=== PATIENT | male | born 1955 | race American Indian/Alaskan Native ===

== ENCOUNTER 2017-10-26 15:14 | Inpatient (IN) | payer OTHER ==
[~2017-10-26] VITALS: Ht 182.9 cm; Wt 127.3 kg
[2017-10-26] MEDS ORDERED: normal saline 1000ML IV soln IVB ONE ×2 (15:35→16:50)
[2017-10-26] MEDS ORDERED: aspirin 81mg tab.chew PO ONE (15:35)
[2017-10-26 15:54] LABS: BASOPHILS % (AUTO) 0.4 % (0-1); EOSINOPHILS # (AUTO) 0.1 X10'3 (0-0.9); EOSINOPHILS % (AUTO) 1.6 % (0-6); HEMATOCRIT 35.1 % (42.0-52.0); HEMOGLOBIN 12.1 g/dl (14.0-17.9); LYMPHOCYTES # (AUTO) 1.2 X10'3 (1.1-4.8); LYMPHOCYTES % (AUTO) 21.4 % (21-51); MEAN CORPUSCULAR HEMOGLOBIN 30.8 PG (27.0-31.0); MEAN CORPUSCULAR HGB CONC 34.5 % (33.0-36.5); MEAN CORPUSCULAR VOLUME 89.4 FL (78-98); MEAN PLATELET VOLUME 7.8 FL (7.4-10.4); MONOCYTES # (AUTO) 0.6 X10'3 (0-0.9); MONOCYTES % (AUTO) 9.8 % (2-12); NEUTROPHILS # (AUTO) 3.8 X10'3 (1.8-7.7); NEUTROPHILS % (AUTO) 66.8 % (42-75); PLATELET COUNT 231 X10'3 (140-440); RED BLOOD COUNT 3.93 X10'6 (4.70-6.10); RED CELL DISTRIBUTION WIDTH 13.8 % (11.5-14.5); WHITE BLOOD COUNT 5.7 X10'3 (4.5-11.0)
[2017-10-26 16:10] LABS: ALANINE AMINOTRANSFERASE 29 U/L (12-78); ALBUMIN 4.3 G/DL (3.4-5.0); ALBUMIN/GLOBULIN RATIO 1.2 (1.1-1.5); ALKALINE PHOSPHATASE 60 IU/L (46-116); ANION GAP 11 (8-16); ASPARTATE AMINO TRANSFERASE 30 U/L (10-37); BILIRUBIN,TOTAL 0.4 MG/DL (0.1-1.0); BLOOD UREA NITROGEN 41 MG/DL (7-18); BUN/CREATININE RATIO 16.1 (5.4-32.0); CALCIUM 9.2 MG/DL (8.5-10.1); CHLORIDE 97 MMOL/L (99-107); CREATININE 2.54 MG/DL (0.60-1.10); GLUCOSE 114 MG/DL (70-104); SODIUM 130 MMOL/L (135-145); TOTAL CARBON DIOXIDE 22.3 MMOL/L (24-32); TOTAL PROTEIN 7.9 G/DL (6.4-8.2); eGFR 26 ML/MIN
[2017-10-26 16:18] LABS: CREATINE KINASE 981 U/L (39-308); MAGNESIUM 1.7 MG/DL (1.5-2.4)
[2017-10-26] MEDS ORDERED: HYDROcodone/acetaminophen 10/325mg tab PO PRN (16:55)
[2017-10-26] MEDS ORDERED: mag hydrox/Alum hydrox/simeth 30ml oral suspension PO PRN (16:55)
[2017-10-26] MEDS ORDERED: ondansetron/PF 4mg/2ml inj IV PRN (16:55)
[2017-10-26] MEDS ORDERED: HYDROcodone/acetaminophen 5mg/325mg tablet PO PRN (16:55)
[2017-10-26] MEDS ORDERED: magnesium 1gm/100ml D5W IVPB 100 ML IV PRN (16:55)
[2017-10-26] MEDS ORDERED: potassium Cl 40MEQ/NS 500ml 500 ML IV PRN ×2 (16:55)
[2017-10-26] MEDS ORDERED: acetaminophen 325mg tablet PO PRN ×2 (16:55)
[2017-10-26] MEDS: normal saline 1000ml 1,000 ML IV SCH (16:55)
[2017-10-26] MEDS ORDERED: magnesium Cl slow-release 64mg tablet PO PRN (16:55)
[2017-10-26] MEDS ORDERED: magnesium hydroxide 30ml (MOM) UD suspension PO PRN (16:55)
[2017-10-26] MEDS ORDERED: potassium Cl 20 mEq SR tablet PO PRN ×2 (16:55)
[2017-10-26] MEDS ORDERED: magnesium 4gm in 100ml NS 100 ML IV PRN (16:55)
[2017-10-26] MEDS ORDERED: [UNRECOGNIZED DRUG - CODE] PO (17:23)
[2017-10-26] MEDS ORDERED: BENA20TA82 PO (17:23)
[2017-10-26] MEDS ORDERED: ALLO300T9 PO (17:23)
[2017-10-26] MEDS ORDERED: ATEN100T6 PO (17:23)
[2017-10-26] MEDS ORDERED: AMLO10TA PO (17:23)
[2017-10-26] MEDS ORDERED: FENO145T38 PO (17:23)
[2017-10-26] MEDS ORDERED: ROSU40TA PO (17:23)
[2017-10-26] MEDS ORDERED: FENO160T5 PO (17:23)
[2017-10-26] MEDS ORDERED: CLOP75TA33 PO (17:23)
[2017-10-26] MEDS ORDERED: ERGO500041 PO (17:27)
[2017-10-26] MEDS ORDERED: ZOLP10TA5 PO (17:27)
[2017-10-26] MEDS ORDERED: TRAM50TA2 PO (17:27)
[2017-10-26] MEDS ORDERED: PANT40TA4 PO (17:27)
[2017-10-26] MEDS ORDERED: ASPI81TA46 PO (17:27)
[2017-10-26] MEDS ORDERED: LORA1TAB PO (17:27)
[2017-10-26] MEDS ORDERED: GABA-532 PO (17:27)
[2017-10-26] MEDS ORDERED: NITR0.4T SL (17:30)
[2017-10-26] MEDS ORDERED: nitroGLYCERIN 0.4mg SUBLingual tab SL PRN (17:35)
[2017-10-26] MEDS ORDERED: LORazepam 1 MG tablet PO PRN (17:35)
[2017-10-26 17:37] LABS: CLARITY,URINE CLEAR (Clear); COLOR,URINE YELLOW (Yellow); GLUCOSE, URINE NEGATIVE (Neg); KETONES,URINE NEGATIVE (Neg); LEUKOCYTE ESTERASE ,URINE NEGATIVE (Neg); NITRITES, URINE NEGATIVE (Neg); OCCULT BLOOD,URINE NEGATIVE (Neg); PH,URINE 5.5 (4.8-8.0); PROTEIN,URINE NEGATIVE (Neg); UROBILINOGEN,URINE 0.2 E.U/dL (0.2-1.0)
[2017-10-26 17:51] LABS: UA COLLECTION TYPE URINAL
[2017-10-26 19:30] VITALS: BP 142/70
[2017-10-26] MEDS: heparin, porcine 5000 units/ml vial SQ SCH (20:25)
[2017-10-26] MEDS: traMADol 50MG tablet PO PRN (20:26)
[2017-10-26] MEDS ORDERED: temazepam 15mg capsule PO PRN (21:00)
[2017-10-26 22:00] VITALS: BP 143/62
[2017-10-27] VITALS (7 sets, daily range): BP systolic 106–189; BP diastolic 61–78
[2017-10-27] MEDS: normal saline 1000ml 1,000 ML IV SCH ×4 (01:15→19:54)
[2017-10-27] MEDS: zolpidem 5mg tablet PO PRN ×2 (02:02→22:06)
[2017-10-27 04:32] LABS: HEMATOCRIT 32.7 % (42.0-52.0); HEMOGLOBIN 11.1 g/dl (14.0-17.9); MEAN CORPUSCULAR HEMOGLOBIN 30.2 PG (27.0-31.0); MEAN CORPUSCULAR HGB CONC 34.1 % (33.0-36.5); MEAN CORPUSCULAR VOLUME 88.5 FL (78-98); MEAN PLATELET VOLUME 8.1 FL (7.4-10.4); PLATELET COUNT 203 X10'3 (140-440); RED BLOOD COUNT 3.69 X10'6 (4.70-6.10); RED CELL DISTRIBUTION WIDTH 13.7 % (11.5-14.5); WHITE BLOOD COUNT 4.3 X10'3 (4.5-11.0)
[2017-10-27 04:50] LABS: ALBUMIN 3.6 G/DL (3.4-5.0); ANION GAP 10 (8-16); BLOOD UREA NITROGEN 32 MG/DL (7-18); BUN/CREATININE RATIO 18.9 (5.4-32.0); CALCIUM 9.2 MG/DL (8.5-10.1); CHLORIDE 103 MMOL/L (99-107); CHOL/HDL RATIO 6.5 (0.00-4.99); CHOLESTEROL 163 MG/DL (0-200); CREATINE KINASE 988 U/L (39-308); CREATININE 1.69 MG/DL (0.60-1.10); GLUCOSE 120 MG/DL (70-104); HDL CHOLESTEROL 25 MG/DL (35-60); LDL CHOLESTEROL 98 MG/DL (50-100); MAGNESIUM 1.7 MG/DL (1.5-2.4); PHOSPHORUS 3.4 MG/DL (2.3-4.5); POTASSIUM 4.6 MMOL/L (3.5-5.1); SODIUM 136 MMOL/L (135-145); TOTAL CARBON DIOXIDE 22.7 MMOL/L (24-32); TRIGLYCERIDES 296 MG/DL (20-135); eGFR 41 ML/MIN
[2017-10-27] MEDS: K and/or MAG REPLACEMENT MC SCH (08:00)
[2017-10-27] MEDS: atorvastatin 20mg tablet PO SCH (08:00)
[2017-10-27] MEDS: pantoprazole 40mg Tablet.DR PO SCH (09:05)
[2017-10-27] MEDS: amLODIPine 5mg tablet PO SCH (09:05)
[2017-10-27] MEDS: aspirin 81mg tablet.DR PO SCH (09:05)
[2017-10-27] MEDS: clopidogrel 75mg tablet PO SCH (09:05)
[2017-10-27] MEDS: atenolol 50mg tablet PO SCH (09:05)
[2017-10-27] MEDS: heparin, porcine 5000 units/ml vial SQ SCH ×2 (09:06→19:53)
[2017-10-27] MEDS: traMADol 50MG tablet PO PRN ×2 (13:38→22:06)
[2017-10-27] MEDS ORDERED: amLODIPine 5mg tablet PO SCH (15:50)
[2017-10-28 01:28] VITALS: BP 142/65
[2017-10-28 02:00] VITALS: BP 182/84
[2017-10-28] MEDS: normal saline 1000ml 1,000 ML IV SCH ×2 (02:15→08:55)
[2017-10-28 04:19] VITALS: BP 154/55
[2017-10-28 05:17] LABS: HEMATOCRIT 34.2 % (42.0-52.0); HEMOGLOBIN 11.7 g/dl (14.0-17.9); MEAN CORPUSCULAR HEMOGLOBIN 30.6 PG (27.0-31.0); MEAN CORPUSCULAR HGB CONC 34.2 % (33.0-36.5); MEAN CORPUSCULAR VOLUME 89.6 FL (78-98); MEAN PLATELET VOLUME 7.8 FL (7.4-10.4); PLATELET COUNT 214 X10'3 (140-440); RED BLOOD COUNT 3.82 X10'6 (4.70-6.10); RED CELL DISTRIBUTION WIDTH 13.6 % (11.5-14.5); WHITE BLOOD COUNT 4.2 X10'3 (4.5-11.0)
[2017-10-28 05:38] LABS: ALBUMIN 3.6 G/DL (3.4-5.0); ANION GAP 10 (8-16); BLOOD UREA NITROGEN 22 MG/DL (7-18); BUN/CREATININE RATIO 17.1 (5.4-32.0); CALCIUM 9.1 MG/DL (8.5-10.1); CHLORIDE 105 MMOL/L (99-107); CREATINE KINASE 639 U/L (39-308); CREATININE 1.29 MG/DL (0.60-1.10); GLUCOSE 106 MG/DL (70-104); MAGNESIUM 1.4 MG/DL (1.5-2.4); PHOSPHORUS 3.1 MG/DL (2.3-4.5); SODIUM 137 MMOL/L (135-145); TOTAL CARBON DIOXIDE 22.3 MMOL/L (24-32); eGFR 56 ML/MIN
[2017-10-28 06:00] VITALS: BP 196/79
[2017-10-28] MEDS: aspirin 81mg tablet.DR PO SCH (07:10)
[2017-10-28] MEDS: clopidogrel 75mg tablet PO SCH (07:11)
[2017-10-28] MEDS: pantoprazole 40mg Tablet.DR PO SCH (07:11)
[2017-10-28] MEDS: heparin, porcine 5000 units/ml vial SQ SCH (07:11)
[2017-10-28] MEDS: amLODIPine 5mg tablet PO SCH (07:11)
[2017-10-28] MEDS: atenolol 50mg tablet PO SCH (07:11)
[2017-10-28] MEDS: atorvastatin 20mg tablet PO SCH (07:16)
[2017-10-28] MEDS: K and/or MAG REPLACEMENT MC SCH (07:17)
[2017-10-28 11:00] VITALS: BP 126/60
== END 2017-10-28 12:05 | disposition home or self-care (01) | DRG 683 ==
LOC: ER 15:15 → ED HOLD 16:55 → PCU 3S 19:42
PROVIDERS: ADMIT Family Medicine; ATTEND Family Medicine
DX: N17.0 Acute kidney failure with tubular necrosis (principal); M62.82 Rhabdomyolysis; E87.1 Hypo-osmolality and hyponatremia; E87.2 Acidosis; I13.0 Hypertensive heart and chronic kidney disease with heart failure and stage 1 through stage 4 chronic kidney disease, or unspecified chronic kidney disease; D64.9 Anemia, unspecified; N18.9 Chronic kidney disease, unspecified; I49.9 Cardiac arrhythmia, unspecified; M10.9 Gout, unspecified; I73.9 Peripheral vascular disease, unspecified; E86.0 Dehydration; I50.9 Heart failure, unspecified; E78.5 Hyperlipidemia, unspecified; I25.10 Atherosclerotic heart disease of native coronary artery without angina pectoris; I25.2 Old myocardial infarction; Z90.49 Acquired absence of other specified parts of digestive tract; Z95.5 Presence of coronary angioplasty implant and graft; Z95.820 Peripheral vascular angioplasty status with implants and grafts; Z79.82 Long term (current) use of aspirin; Z79.02 Long term (current) use of antithrombotics/antiplatelets; Z79.899 Other long term (current) drug therapy; Z86.73 Personal history of transient ischemic attack (TIA), and cerebral infarction without residual deficits; Z80.1 Family history of malignant neoplasm of trachea, bronchus and lung
CPT/HCPCS: 36415; 71045; 76775; 80048; 80053; 80061; 81003; 82550; 83735; 83880; 84100; 84443; 84484; 85025; 85027; 87070; 93005; 93306; 96360; 99285; J1644; J7030